=== PATIENT | male | born 1940 | race Caucasian/White ===

== ENCOUNTER 2019-07-01 19:26 | Inpatient (IN) ==
[2019-07-01 20:06] LABS: BASO# 0.02 X1000 (0.0-0.2); BASO% 0.1 % (0.0-0.8); HEMATOCRIT 38.9 % (42.0-52.0); HEMOGLOBIN 13.2 g/dL (14.0-18.0); IMM GRAN# 0.03 X1000 (0.0-0.04); IMM GRAN% 0.2 % (0.0-0.5); LYMPH% 6.5 % (20.5-51.1); MCH 32.5 PG (27-31); MCHC 33.9 g/dL (33-37); MCV 95.8 FL (81-99); MONO# 1.58 X1000 (0.11-0.59); MONO% 10.3 % (1.7-9.3); MPV 10.3 FL (7.4-10.4); NEUT# 12.72 X1000 (1.4-6.5); NEUT% 82.9 % (42.2-75.2); PLT 208 X1000 (130-400); RBC 4.06 XMIL (4.7-6.1); RDW 13.4 % (11.5-14.5); WBC 15.35 X1000 (4.8-10.8)
[2019-07-01 20:20] LABS: URINE SOURCE CLEAN CATCH
[2019-07-01] MEDS ORDERED: NS 1,000 ML IV ONE (20:33)
[2019-07-01 20:41] LABS: AGAP 16; ALB/GLOB RATIO 1.4; ALBUMIN 4.1 g/dL (3.5-5.0); ALKALINE PHOSPHATASE 91 U/L (32-122); BUN 29 mg/dL (8-22); CALCIUM 9.4 mg/dL (8.8-10.2); CHLORIDE 97 mmol/L (98-107); COSMO 282; CREATININE 1.1 mg/dL (0.7-1.2); ESTIMATED GFR > 60; GLUCOSE 133 mg/dL (70-104); GOT 23 U/L (10-34); GPT 19 U/L (10-44); LIPASE 33 U/L (13-60); POTASSIUM 3.8 mmol/L (3.5-5.1); SODIUM 137 mmol/L (136-145); TCO2 24 mmol/L (25-35); TOTAL BILIRUBIN 2.33 mg/dL (0.20-1.00)
[2019-07-01 20:44] LABS: BILIRUBIN URINE NEGATIVE (NEGATIVE); BLOOD URINE SMALL (NEGATIVE); COLOR YELLOW; GLUCOSE URINE NEGATIVE (NEGATIVE); KETONE URINE TRACE mg/dL (NEGATIVE); LEUKOCYTES URINE MODERATE (NEGATIVE); NITRITE URINE NEGATIVE (NEGATIVE); PH URINE 5.5; PROTEIN URINE 30 mg/dL (NEGATIVE); SP GRAVITY URINE 1.026; TURBIDITY URINE HAZY (CLEAR); UROBILINOGEN URINE NORMAL (NORMAL)
[2019-07-01 20:47] LABS: UR EPITHELIAL CELLS <10 /HPF (<10); URINE BACTERIA 1+ /HPF; URINE WBC 20-40 /HPF (<10)
--- NOTE | 2019-07-01 23:13 | PROVIDER DOCUMENTATION ---
HPI-General Adult - General Chief Complaint: Abdominal Pain Stated Complaint: ABD PAIN/FEVER Time Seen by Provider: 07/01/19 20:09 Source: patient Allergies/Adverse Reactions: Patient Allergies Allergy/AdvReac Type Severity Reaction Status Date / Time No Known Allergies Allergy Verified 07/01/19 23:25 Home Medications: Home Medication List Medication Instructions Recorded Confirmed Last Taken Type Aspirin 81 mg PO DAILY 07/01/19 07/01/19 Unknown History Atorvastatin Calcium 20 mg PO DAILY 07/01/19 07/01/19 Unknown History Donepezil [Aricept] 10 mg PO QPM 07/01/19 07/01/19 Unknown History Hydrochlorothiazide 12.5 mg PO DAILY 07/01/19 07/01/19 Unknown History Levothyroxine [Synthroid] 50 microgm PO DAILY 07/01/19 07/01/19 Unknown History Tamsulosin [Flomax] 0.4 mg PO QHS 07/01/19 07/01/19 Unknown History Warfarin Sodium 3 mg PO DAILY 07/01/19 07/01/19 Unknown History - History of Present Illness -Gen Adult Nature of Presenting Problems: This is a 79yo male who presents with CC of abdominal pain. The onset was 2 days ago. The location is the RLQ and the timing is intermitent. The associated symptoms are nausea and vomiting. The patient reports that he woke up on monday with nausea and vomiting and has had intermitent RLQ pain since then, and was sent from the urgent care for further evaluation. Location of Pain/Injury: reports: abdomen Pain Radiation: reports: RLQ Onset/Duration: reports: 2 days ago Timing: reports: improving, intermittent Associated Symptoms: reports: nausea, vomiting. denies: chest pain Review of Systems - Adult - REVIEW OF SYSTEMS - ADULT Constitutional: reports: fever Eyes: denies: blurred vision Ears, Nose, Mouth & Throat: reports: no symptoms reported. denies: throat pain Cardiovascular: reports: no symptoms reported. denies: chest pain Respiratory: reports: no symptoms reported, shortness of breath Past History - Adult - PAST MEDICAL HISTORY-ADULT Review of Records: reports: Old Records Reviewed Physical Exam-General - CONSTITUTIONAL General Appearance: appears well, alert - HEAD, EARS, NOSE, MOUTH & THROAT HENMT: normocephalic/atraumatic, moist mucous membranes - RESPIRATORY Respiratory: decreased breath sounds (Lower left other lung spence cleart) - CARDIOVASCULAR Cardiovascular: regular rate, rhythm, no edema, systolic murmur - GASTROINTESTINAL (ABDOMEN) Abdominal Exam: tenderness (RLQ and RUQ, mild rebound tendernss, neg rovsings) - SKIN Integumentary: normal color - NEUROLOGIC Neurologic: grossly normal - PSYCHIATRIC Psych/Mental Status: normal mood/affect, normal thought content, normal thought process Progress - PLAN OF CARE/RESULTS Progress/Plan/Lab Results: Vital Signs - 8 hr 07/01/19 19:40 Temperature 98.0 F Pulse Rate 76 Respiratory Rate 18 Blood Pressure 159/73 O2 Sat by Pulse Oximetry 95 Laboratory Results - last 24 hr 07/01/19 07/01/19 07/01/19 19:45 19:45 19:58 WBC 15.35 H RBC 4.06 L Hgb 13.2 L Hct 38.9 L MCV 95.8 MCH 32.5 H MCHC 33.9 RDW Std Deviation 13.4 Plt Count 208 MPV 10.3 Immature Gran % (Auto) 0.2 Neut % (Auto) 82.9 H Lymph % (Auto) 6.5 L Gooding % (Auto) 10.3 H Eos % (Auto) 0.0 Baso % (Auto) 0.1 Immature Gran # (Auto) 0.03 Neut # (Auto) 12.72 H Lymph # (Auto) 1.00 L Gooding # (Auto) 1.58 H Eos # (Auto) 0.00 Baso # (Auto) 0.02 Sodium 137 Potassium 3.8 Chloride 97 L Carbon Dioxide 24 L Anion Gap 16 BUN 29 H Creatinine 1.1 Estimated GFR/1.73 m2 > 60 BUN/Creatinine Ratio 26 Glucose 133 H Calculated Osmolality 282 Calcium 9.4 Total Bilirubin 2.33 H AST 23 ALT 19 Alkaline Phosphatase 91 Total Protein 7.0 Albumin 4.1 Globulin 2.9 Albumin/Globulin Ratio 1.4 Lipase 33 Urine Source CLEAN CATCH Urine Color YELLOW Urine Turbidity HAZY Urine pH 5.5 Ur Specific Harbinger 1.026 Urine Protein 30 A Ur Glucose (Stick) NEGATIVE Ur Ketones (Stick) TRACE A Urine Blood SMALL A Urine Nitrite NEGATIVE Urine Bilirubin NEGATIVE Urobilinogen Dipstick NORMAL Urine Leukocytes MODERATE A Urine WBC (Auto) 20-40 A Urine RBC (Auto) 10-20 A U Epithel Cells (Auto) <10 Urine Bacteria (Auto) 1+ Orders Category Date Time Status NPO Diet 07/01/19 19:[address] ABD/PELVIS W/IV CONT ONLY [CT] Stat Exams 07/01/19 20:32 Ordered CBC WITH DIFF [HEME] Stat Lab 07/01/19 19:45 Completed COMPREHENSIVE METABOLIC PANEL [CHEM] Stat Lab 07/01/19 19:45 Completed LIPASE [CHEM] Stat Lab 07/01/19 19:45 Completed URINALYSIS [URINALYSIS] Stat Lab 07/01/19 19:58 Completed 0.9% Sodium Chloride Inj [Ns] 1,000 ml Med 07/01/19 20:33 Discontinued IV 999 mls/hr Abd Pain/OB <20 weeks Stat Oth 07/01/19 19:44 Ordered Result Diagrams: 07/01/19 19:45 07/01/19 19:45 - REASSESSMENT Reassessment #1 Status: unchanged (Acute cholecystitis noted on CT. Discussed with general surg marya team who recomended admiting with hospitalist team and starting zosyn. Discussed with hospitalist team who has accepted the patient.) Departure - Departure Date of Disposition Decision: 07/02/19 Time of Disposition Decision: 01:14 DIAGNOSIS: Cholecystitis, acute Abdominal pain Qualifiers: Abdominal location: right lower quadrant Qualified Code(s): R10.31 - Right lower quadrant pain Disposition: ADMITTED INPATIENT 09 Certified Medical Emergency: Emergent Condition: Fair Referrals and Follow-Ups: None,PCP [Primary Care Provider] - - Critical Care Note This patient required my direct & personal management of CC.: No Attestation - Physician/ RYLAN Attestation Patient care was provided by Advanced Practice Provider:: No The physician spent face to face time with patient:: Yes Advanced Practice Provider documentation review:: Supervising physician onsite and consulted in the evaluation and care of this patient. The physician did have a face to face encounter with the patient.
[2019-07-02] MEDS ORDERED: ZOSYN 4.5 GM in NS 100 ML IV SCH ×2 (01:15→08:00)
[2019-07-02 01:39] LABS: INR 2.02; PROTIME 23.4 Seconds (11.0-16.0)
[2019-07-02] MEDS ORDERED: ZOSYN 4.5 GM in NS 100 ML IV ONE (02:00)
[2019-07-02] MEDS ORDERED: ZOFRAN IV PRN (05:11)
[2019-07-02] MEDS ORDERED: MORPHINE IV PRN (05:11)
--- NOTE | 2019-07-02 06:00 | HISTORY AND PHYSICAL ---
PRIMARY CARE PHYSICIAN: None. CHIEF COMPLAINT: Abdominal pain. HISTORY OF PRESENTING ILLNESS: A 79-year-old male with a history of hypothyroidism, hyperlipidemia, hypertension, IA, and CVA presented to the emergency department with 2 days history of having worsening right upper quadrant pain. The patient states that he was nauseated, and was having some dry heaves. The patient was evaluated in the emergency department. He had imaging done which did show acute cholecystitis. Case was discussed with General Surgery who recommended admission for further management. At the time of my examination, patient denied any headache, fever, chills, chest pain, shortness of breath, or any weight changes but complained of abdominal pain. PAST MEDICAL HISTORY: Hypothyroidism, BPH, hyperlipidemia, hypertension, coronary artery disease, IA and CVA. PAST SURGICAL HISTORY: Coronary artery bypass. ALLERGIES: No known drug allergies. CURRENT MEDICATIONS: 1. Aspirin 81 mg p.o. daily. 2. Atorvastatin 20 mg p.o. daily. 3. Aricept 10 mg p.o. every evening. 4. Hydrochlorothiazide 12.5 mg p.o. daily. 5. Levothyroxine 50 mcg p.o. daily. 6. Tamsulosin 0.4 mg p.o. at bedtime. 7. Warfarin 3 mg p.o. daily. SOCIAL HISTORY: No history of smoking, alcohol or illicit drug use. FAMILY HISTORY: No history of coronary disease. REVIEW OF SYSTEMS: Fourteen point review of systems is as in HPI. Other systems negative. PHYSICAL EXAMINATION: GENERAL: Cooperative friendly male. He is resting comfortably now. VITAL SIGNS: Temperature 97.7 degrees, pulse 72, respirations 16, and blood pressure 142/71. HEENT: Atraumatic, normocephalic. Extraocular movements intact. PERRLA. NECK: Supple. CHEST: Clear to auscultation. CARDIOVASCULAR: Regular rate and rhythm. ABDOMEN: Soft. Right upper quadrant tenderness. EXTREMITIES: No edema. NEUROLOGIC: He is awake, alert, and oriented x3. : No bladder distention. SKIN: Warm. LABORATORIES AND STUDIES: WBCs 15.35, hemoglobin 13.2, hematocrit 38.9, and platelets 208,000. Sodium 137, potassium 3.8, chloride 97, CO2 24, BUN is 29, creatinine is 1.1, glucose 133, INR is 2.02. UA shows moderate leukocytes and +1 bacteria. ASSESSMENT: A 79-year-old male with a history of hypothyroidism, CVA, IA, coronary disease, and hyperlipidemia who presented to emergency department with 2 days history of having worsening right upper quadrant pain. Patient was evaluated in the emergency department. He had a CAT scan done which was consistent with acute cholecystitis. His case was discussed with General Surgery who recommended admission for further management. 1. Acute cholecystitis. 2. Hypothyroidism. 3. Coronary artery disease. 4. Hypertension. 5. Possible UTI. PLAN: 1. We will admit patient to medical floor with telemetry. 2. Keep patient NPO. Continue with IV fluids, antiemetics, and pain control. 3. We will consult General Surgery. 4. Start patient on empiric antibiotics. 5. We will monitor blood pressure. Resume antihypertensive agent. 6. We will check urine cultures. 7. Place patient on DVT prophylaxis and SCD's. 8. We will continue to follow and reassess. Make further recommendations based on patient's clinical course. cc: Lobo Kolb MD
[2019-07-02 06:33] LABS: INR 2.27; PROTIME 25.6 Seconds (11.0-16.0)
--- NOTE | 2019-07-02 07:30 | Diag Imaging Result Doc PS360 ---
EXAM: CT ABD/PELVIS W/IV CONT ONLY 07/01/2019 HISTORY: PAIN, RLQ, FEVER, ELEVATED WBC TECHNIQUE: This exam was performed using automated exposure control, adjustment of mA or kV according to patient size, and/or use of iterative reconstruction technique. COMMENT: There are platelike opacities in both lung bases particularly the posterior right lower lobe. There is a questionable nodule present in the anterior inferior left lower lobe on image 18 measuring less than 9 mm in diameter. This is not clearly calcified. The left atrium and ventricle are enlarged. There are calcifications in the left anterior descending and right coronary arteries. There is a hiatal hernia. There are small bilateral pleural effusions. The aorta is calcified. There is no significant aneurysm. The mesenteric and renal arteries are patent. The gallbladder is markedly inflamed and thickened in appearance with several small densely calcified stones. The liver spleen adrenal glands and pancreas are unremarkable. There is some lobulation of the kidneys without evidence of hydronephrosis. There is a cyst in the upper pole of the left kidney measuring 3 cm in diameter. There is no evidence of significant adenopathy. There is no evidence of bowel obstruction. The appendix is normal in appearance. There is some fluid in the colon. Pelvis: There is no evidence of free fluid. The prostate gland is enlarged measuring 7.2 x 7 cm in the axial plane. The urinary bladder is not distended. There is an enhancing node present anterolateral to the prostate gland on the right side measuring 9 mm in diameter. There is otherwise no evidence of significant adenopathy. There is no free fluid. There are degenerative changes in the lumbar spine. There is no evidence of acute bony abnormality. IMPRESSION: 1. Bibasilar atelectasis. Cardiomegaly with coronary atherosclerosis. 2. Acute cholecystitis with cholelithiasis. 3. Prostatic enlargement. Other nonacute findings as described above. Electronically signed by Jefry Tran 07/02/2019 7:28 AM
--- NOTE | 2019-07-02 07:56 | GENERAL SURGERY CONSULTATION ---
DATE: 07/02/2019 REQUESTING PHYSICIAN: Hospitalist. REASON FOR CONSULTATION: Possible cholecystitis. HISTORY OF PRESENT ILLNESS: A 79-year-old gentleman who complained of dry heaving and nausea beginning Monday upon awakening from sleep. He has been having some diarrhea and some pain in his right lower quadrant right flank and some right upper quadrant improved. He took a shower and it has improved since he has been admitted to the hospital. He came to the ER for this pain and was evaluated. Had a CT scan that showed the possibility of cholecystitis. It was also noted that he had a large prostate, and on my view looks like his bladder looked thickened. He is currently doing okay, but I was asked to weigh an opinion. PAST MEDICAL HISTORY: 1. History of [place]. 2. History of diabetes. 3. History of hyperlipidemia. 4. History of hypertension. 5. History of thyroid disease. PAST SURGICAL HISTORY: Includes coronary artery bypass. SOCIAL HISTORY: Rare alcohol intake but nonsmoker. FAMILY HISTORY: Reviewed with patient, noncontributory to this case. HOME MEDICATIONS: 1. Aspirin. 2. Statin. 3. Aricept. 4. Hydrochlorothiazide. 5. Synthroid. 6. Warfarin. 7. Flomax. ALLERGIES: None. REVIEW OF SYSTEMS: A full 14 systems reviewed and negative as specified in HPI. PHYSICAL EXAMINATION: Vital Signs: Patient is currently afebrile. His vital signs stable. General: No acute distress. HEENT: Normocephalic, atraumatic. Pupils equal, round, reactive to light. Mucous membranes moist. Oropharynx benign. Neck: Supple, trachea midline. Cardiovascular: Regular rate and rhythm. Lungs: Grossly clear. Abdomen: Soft. No real significant tenderness on the right side in the upper quadrant. Some minimal discomfort in the mid to lower aspect of the right side. No peritoneal signs. Extremities: Moves all extremities. Neurologic: Grossly intact. Skin: No obvious signs of jaundice at this time. VASCULAR: All extremities perfused. LABORATORY: Reviewed. White blood cell count 15, hematocrit 38, platelet count 208,000. INR is 2.02. Of note his bilirubin is 2.33. His AST, ALT and alkaline phosphatase are all normal. Lipase is normal. Urinalysis shows small amount of blood, moderate leukocytosis, moderate white blood cells and urine red blood cells, but less than 10 epithelial cells with urine bacteria. CT scan independently reviewed and radiology report reviewed. ASSESSMENT AND PLAN: A 79-year-old gentleman with possible cholecystitis and possible urinary tract infection with enlarged prostate. 1. Possible cholecystitis. At this time his bilirubin is elevated, although his AST, ALT, and alkaline phosphatase are normal. He is not tender right now so at this point, agree with antibiotics and keeping him NPO. We will get an ultrasound to evaluate further. His INR is elevated, so we will hold on his Coumadin and just let it kind of trend down while we are still evaluating everything. 2. Possible urinary tract infection. At this time, his urine looks like a clean-catch. He does have blood in that. He is on Zosyn. We will continue to monitor. 3. Enlarged prostate. At this time, he does have blood in his urine. He is having possible urinary tract infection. We will get Urology to see. I appreciate the consult. cc: Ranjith Vasquez MD
[2019-07-02] MEDS: ZOSYN 3.375 GM in NS 50 ML IV SCH ×3 (08:43→21:13)
[2019-07-02] MEDS: NS 1,000 ML IV SCH (08:43)
--- NOTE | 2019-07-02 13:44 | Diag Imaging Result Doc PS360 ---
EXAM: US GB < RUQ (LIMITED) INDICATION: possible cholecystitis COMPARISON: None. FINDINGS: There are a few shadowing stones in the gallbladder lumen. There is prominent thickening of the gallbladder wall measuring up to 6 mm in thickness. This is consistent with cholecystitis. It was also seen on the previous CT dated 07/01/2019. The common bile duct is normal in diameter. Sonographic Mari's sign was reported to be negative by the litigation docket manager. The liver is grossly unremarkable. Portal venous flow is hepatopetal. The pancreas is partially obscured by bowel gas. The visualized portion is unremarkable. There is aortic atherosclerotic calcification. The aorta and IVC are grossly unremarkable, otherwise. The right kidney is grossly unremarkable. IMPRESSION: Cholelithiasis with prominent gallbladder wall thickening consistent with cholecystitis. Please correlate clinically. Electronically signed by Miki Tyson 07/02/2019 1:41 PM
--- NOTE | 2019-07-02 16:53 | EKG Report ---
Test Performed on : 07/02/2019 4:43:44 PM Test Reason : Baseline EKG for heart rhypthm Blood Pressure : / mmHG Vent. Rate : 070 BPM Atrial Rate : 117 BPM P-R Int : 000 ms QRS Dur : 102 ms QT Int : 434 ms P-R-T Axes : 000 -43 104 degrees QTc Int : 468 ms Atrial fibrillation. Left axis deviation Voltage criteria for left ventricular hypertrophy Anterior infarct (cited on or before 13-NOV-2011) ST & T wave abnormality, consider lateral ischemia Abnormal ECG When compared with ECG of 26-APR-2012 07:30, Atrial fibrillation. has replaced Sinus rhythm. Confirmed by Viktoriya KHAN, Luis Antonio Egan ([id number]) on 07/04/2019 8:04:24 PM
--- NOTE | 2019-07-02 18:31 | PROGRESS NOTE ---
DATE: 07/02/2019 INTERVAL HISTORY: No acute events overnight. He has not been having any more abdominal pain and nausea. He was walking in his room when I visited him. He states his abdominal pain has significantly gotten better. We discussed about ultrasound finding. We discussed about repeating blood test tomorrow morning. I answered all of his questions. OBJECTIVE: Vitals: Currently temperature 98.4 degrees, pulse 64, respiratory rate 18, blood pressure 140/69, he is saturating 98% room air. General: Does not appear in acute distress. Oral cavity is moist. Air entry bilaterally equal. No wheeze, rhonchi, or crackles. Cardiovascular: S1, S2 normal, appears irregular. No murmur, rub, or gallop. Abdomen is soft. There is mild tenderness in the right upper quadrant region without any guarding or rigidity. No lower extremity edema. He is alert, he is oriented x3. He does appear to have some memory lapses, though. DIAGNOSTIC STUDIES: Labs suggestive of leukocytosis, elevated total bilirubin. He does have on EKG irregularly irregular heart rhythm and left ventricle hypertrophy. ASSESSMENT AND PLAN: 1. Acute cholecystitis with cholecystolithiasis based on CT scan, ultrasound finding. Continue intravenous fluids, intravenous antibiotic. Follow up final surgery recommendations. 2. History of coronary artery disease status post coronary artery bypass grafting in 2011 and history of cerebrovascular accident and likely history of chronic atrial fibrillation, currently rate controlled. I will continue to hold his Coumadin for now as we await final surgery recommendation. 3. Others. Continue tamsulosin for BPH, Urology has been consulted for his hematuria on urinalysis, though he was on Coumadin; continue levothyroxine for hypothyroidism; donepezil which I assume he is taking for memory impairment, and atorvastatin DISPOSITION: Awaiting blood work tomorrow to see the trend of bilirubin and further surgical recommendation. Plan of care discussed with the patient. His questions have been answered. cc: Wei Nicole MD
--- NOTE | 2019-07-02 20:07 | CONSULTATION ---
DATE OF CONSULTATION: 07/02/2019 ATTENDING AND REFERRING PHYSICIAN: Hospitalist. HISTORY OF PRESENT ILLNESS: This 79-year-old male was admitted with right upper quadrant pain and nausea and vomiting. He was noted to have a large prostate on CT scan. The patient has a long history of enlarged prostate and obstructive voiding. He has a history of urinary retention and uses self-catheterization and occasionally. He states the last time was several years ago. He states he does not go anywhere without his catheter. He is on Flomax 0.4 mg every evening. He denies any other urologic surgery. He has no history of kidney stones. He has an occasional urinary tract infection. PAST MEDICAL HISTORY: 1. Coronary artery disease. 2. Diabetes. 3. Elevated cholesterol. 4. Hypertension. 5. Memory problems. CURRENT MEDICATIONS: Documented on the chart. PAST SURGICAL HISTORY: Coronary artery bypass grafting. SOCIAL HISTORY: Occasional alcohol use. He denies tobacco use. REVIEW OF SYSTEMS: No known drug allergies. He states usually he is in good health. He states he does have some memory problems. He denies any recent chest pains. He states he has occasional bowel problems with a change in shape of his stool. PHYSICAL EXAMINATION: General: A normally developed, well nourished, age apparent, white male who is cooperative. HEENT: Normal for age. Lungs: Clear. Cardiovascular: Regular rate and rhythm. Abdomen: Mildly protuberant, soft. No hepatosplenomegaly or masses. Normal bowel sounds. Mild right-sided abdominal tenderness. No guarding or rebound. : Uncircumcised male. Both testes are down. Scrotal exam is normal. Small left spermatocele. No inguinal hernias. Rectal: Normal sphincter tone. Prostate 80 to 90 g, smooth and symmetric. Extremities: No clubbing, cyanosis, or edema. Neurologic: No focal deficits. LABORATORY EVALUATION: White count of 15.35, hemoglobin of 13.2, hematocrit of 38.9, and platelets are 208,000. Serum electrolytes are normal. BUN 29 and creatinine 1.1. His PSA in April 2013 was 7.4. IMPRESSION: 1. Enlarged prostate with obstructive voiding. 2. Remote history of urinary retention. 3. History of elevated prostate specific antigen. RECOMMEND: 1. Check postvoid residual. 2. Check prostate specific antigen. 3. Increase Flomax to 0.4 mg b.i.d. Thank you for this consultation. cc: Alli Saravia MD
[2019-07-02] MEDS ORDERED: FLOMAX PO SCH (21:00)
[2019-07-02] MEDS: ARICEPT PO SCH (21:14)
[2019-07-02] MEDS: FLOMAX PO SCH (21:14)
[2019-07-02] MEDS ORDERED: BLISTEX MEDICATED BERRY LIP BALM TOP ONE (23:34)
[2019-07-03] MEDS: NS 1,000 ML IV SCH ×2 (01:19→02:47)
[2019-07-03] MEDS: ZOSYN 3.375 GM in NS 50 ML IV SCH ×4 (02:47→21:24)
--- NOTE | 2019-07-03 06:08 | GENERAL SURGERY PROGRESS NOTE ---
DATE: 07/03/2019 SUBJECTIVE: Patient says he is not hurting right now. OBJECTIVE: Vital Signs: Patient is currently afebrile. His vital signs are stable. General: No acute distress. HEENT: Normocephalic, atraumatic. Pupils equal, round, reactive to light. Mucous membranes moist. Oropharynx benign. Neck: Supple. Trachea midline. Cardiovascular: Regular rate and rhythm. Lungs: Grossly clear. Abdomen: Soft, nondistended, nontender at this time. Extremities: Moves all extremities. Neurologic: Grossly intact. Skin: No signs of jaundice. Vascular: All extremities perfused. LABORATORY: Reviewed from yesterday. INR is 2.27. Ultrasound reviewed and does show the possibility of a prominent gallbladder with wall thickening. ASSESSMENT AND PLAN: A 79-year-old gentleman with possible cholecystitis. 1. Cholecystitis. At this time, discussed with patient options. He wants to proceed with nonoperative management with antibiotics. Discussed with him the natural course of this, that he could improve but he has a high chance of recurrence of symptoms. He says he understands but still wants to try to avoid surgery, since he is not hurting right now. He also says he wants to go home. Given this, the fact that he understands the risk of it, we could potentially put him on oral antibiotics and send him home, although I would need to see him back in the office in a week to evaluate fully. The soonest we could probably do the surgery is probably tomorrow anyway, because we have to reverse his anticoagulation, but again, the patient seems pretty set on the fact that he wants to go home and not have surgery. 2. Possible urinary tract infection. At this time, microbiology is pending. 3. Enlarged prostate. At this time, Urology has seen him. I appreciate their input. cc: Ranjith Vasquez MD
[2019-07-03 07:14] LABS: BASO# 0.02 X1000 (0.0-0.2); BASO% 0.2 % (0.0-0.8); EOS# 0.04 X1000 (0.0-0.7); EOS% 0.4 % (0.0-10.0); HEMATOCRIT 35.8 % (42.0-52.0); IMM GRAN# 0.02 X1000 (0.0-0.04); IMM GRAN% 0.2 % (0.0-0.5); LYMPH# 0.88 X1000 (1.2-3.4); LYMPH% 7.8 % (20.5-51.1); MCH 32.7 PG (27-31); MCHC 33.5 g/dL (33-37); MCV 97.5 FL (81-99); MONO# 1.23 X1000 (0.11-0.59); MONO% 10.9 % (1.7-9.3); MPV 10.4 FL (7.4-10.4); NEUT# 9.12 X1000 (1.4-6.5); NEUT% 80.5 % (42.2-75.2); PLT 213 X1000 (130-400); RBC 3.67 XMIL (4.7-6.1); RDW 13.6 % (11.5-14.5); WBC 11.31 X1000 (4.8-10.8)
[2019-07-03 07:20] LABS: INR 2.67; PROTIME 29.1 Seconds (11.0-16.0)
[2019-07-03 07:43] LABS: AGAP 11; ALB/GLOB RATIO 0.9; ALBUMIN 3.2 g/dL (3.5-5.0); ALKALINE PHOSPHATASE 95 U/L (32-122); BUN 22 mg/dL (8-22); CALCIUM 8.9 mg/dL (8.8-10.2); CHLORIDE 102 mmol/L (98-107); COSMO 279; ESTIMATED GFR > 60; GLUCOSE 97 mg/dL (70-104); GOT 21 U/L (10-34); GPT 15 U/L (10-44); POTASSIUM 3.5 mmol/L (3.5-5.1); SODIUM 138 mmol/L (136-145); TCO2 25 mmol/L (25-35); TOTAL PROTEIN 6.9 g/dL (6.3-8.3)
[2019-07-03] MEDS: FLOMAX PO SCH ×2 (09:29→21:24)
[2019-07-03] MEDS: SYNTHROID PO SCH (09:30)
[2019-07-03] MEDS: LIPITOR PO SCH (09:31)
[2019-07-03] MEDS: ASPIRIN PO SCH (09:31)
--- NOTE | 2019-07-03 12:10 | PROGRESS NOTE ---
DATE: 07/03/2019 INTERVAL HISTORY: The patient today, did not want to go for surgery. Surgical team had evaluated the patient, and he wanted to stay back for intravenous antibiotic, knowing that his white blood cell count and bilirubin were trending down. He understood the risk associated with it. He also understood the risk associated with worsening acute cholecystitis. SUBJECTIVE: He is feeling better. He is denying any nausea or vomiting, except only mild tenderness in the right upper quadrant, which has improved to 99%, in his words. He has started drinking some liquids. OBJECTIVE: Vital Signs: Currently, temperature 98.2 degrees, pulse 69, respiratory rate 18, blood pressure 113/72, saturating 98% on room air. General: Does not appear to be in any acute distress. HEENT: Oral cavity is moist. Lungs: Air entry bilaterally equal. No wheeze, rhonchi, or crackles. Cardiovascular: S1, S2 normal. Irregularly irregular. No murmur, rub, or gallop. Abdomen: Soft. Mild tenderness in the right upper quadrant, without guarding, rigidity, or rebound. Active bowel sounds. Extremities: No lower extremity edema. Neurologic: He is alert and oriented x3. IMAGING AND LABORATORY DATA: Labs suggestive of improving leukocytosis. Normal hemoglobin, normal platelet count. INR of 2.6. Normal electrolytes. His bilirubin is 1.5 today. His direct bilirubin is 0.4. His prostate-specific antigen is significantly elevated. No new imaging today. ASSESSMENT AND PLAN: 1. Acute cholecystitis with cholecystolithiasis and symptoms of right upper quadrant abdominal pain with nausea and dry heaves. He likely has symptomatic acute cholecystitis. However, he is adamant about not undergoing surgery, so I will continue him on intravenous antibiotics, and follow up with blood count and liver function tests tomorrow. I will also continue him on a liquid diet to see how he does on that. If his lab work shows improvement and he is not symptomatic, then he wanted to be discharged home on oral antibiotics tomorrow. 2. History of coronary artery disease, status post coronary artery bypass graft in 2011, and history of cerebrovascular accident, with history of chronic atrial fibrillation, which is currently rate controlled. I am holding his Coumadin as I await final discharge disposition. Meanwhile, I will continue his aspirin and atorvastatin. 3. History of benign prostatic hypertrophy with significantly elevated PSA. Continue tamsulosin at a higher dose, and outpatient Urology followup. 4. Others. Continue levothyroxine for hypothyroidism, donepezil for memory impairment. 5. Disposition. Awaiting repeat lab work tomorrow. If it shows improvement, then the plan could be to let him go home on oral antibiotics. He understood the possible risks associated with it. If he develops recurrence of symptoms or the lab tests worsen, then he may consider surgical option. I tried to reach out to the dish person listed in the computer and left a voice message. cc: Wei Nicole MD MTDD
[2019-07-03] MEDS: ARICEPT PO SCH (21:24)
[2019-07-04] MEDS: ZOSYN 3.375 GM in NS 50 ML IV SCH ×2 (01:13→08:30)
--- NOTE | 2019-07-04 06:36 | GENERAL SURGERY PROGRESS NOTE ---
DATE: 07/04/2019 SUBJECTIVE: Patient doing well. No major issues. OBJECTIVE: Vital Signs: Patient is currently afebrile. His vital signs are stable. General: No acute distress. HEENT: Normocephalic, atraumatic. Pupils equal, round, and reactive to light. Mucous membranes moist. Oropharynx benign. Neck: Supple. Trachea midline. Cardiovascular: Regular rate and rhythm. Lungs: Grossly clear. Abdomen: Soft. Nontender at this point. Extremities: Moves all extremities. Neurologic: Grossly intact. Skin: No signs of jaundice. Vascular: All extremities perfused. LABORATORY: None this morning as of yet. ASSESSMENT AND PLAN: A 79-year-old gentleman with acute cholecystitis. Acute cholecystitis. At this time, patient still wants to pursue the antibiotic route. I did discuss with him yesterday and documented in the chart the natural course of cholecystitis. The fact that treatment with antibiotics alone, he may have recurrence. He is aware of this, but still wants to proceed down this route from a surgical point of view. Once okay with hospitalist, he can be discharged. cc: Ranjith Vasquez MD
[2019-07-04 07:29] LABS: BASO# 0.03 X1000 (0.0-0.2); BASO% 0.4 % (0.0-0.8); EOS% 2.7 % (0.0-10.0); HEMATOCRIT 34.9 % (42.0-52.0); HEMOGLOBIN 11.6 g/dL (14.0-18.0); IMM GRAN# 0.02 X1000 (0.0-0.04); IMM GRAN% 0.3 % (0.0-0.5); LYMPH# 1.23 X1000 (1.2-3.4); LYMPH% 16.6 % (20.5-51.1); MCH 32.4 PG (27-31); MCHC 33.2 g/dL (33-37); MCV 97.5 FL (81-99); MONO# 0.74 X1000 (0.11-0.59); MPV 10.1 FL (7.4-10.4); PLT 228 X1000 (130-400); RBC 3.58 XMIL (4.7-6.1); RDW 13.4 % (11.5-14.5); WBC 7.42 X1000 (4.8-10.8)
[2019-07-04 07:41] LABS: INR 3.12
[2019-07-04 08:01] LABS: AGAP 11; ALB/GLOB RATIO 0.9; ALKALINE PHOSPHATASE 84 U/L (32-122); BUN 17 mg/dL (8-22); CALCIUM 8.6 mg/dL (8.8-10.2); CHLORIDE 103 mmol/L (98-107); COSMO 279; ESTIMATED GFR > 60; GLUCOSE 88 mg/dL (70-104); GOT 24 U/L (10-34); GPT 16 U/L (10-44); MAGNESIUM 2.1 mg/dL (1.5-2.7); SODIUM 139 mmol/L (136-145); TCO2 25 mmol/L (25-35); TOTAL BILIRUBIN 0.95 mg/dL (0.20-1.00); TOTAL PROTEIN 6.4 g/dL (6.3-8.3)
[2019-07-04] MEDS ORDERED: KLOR-CON PO ONE (08:04)
[2019-07-04] MEDS: ASPIRIN PO SCH (08:30)
[2019-07-04] MEDS: LIPITOR PO SCH (08:30)
[2019-07-04] MEDS: FLOMAX PO SCH (08:30)
[2019-07-04] MEDS: SYNTHROID PO SCH (08:30)
[2019-07-04 09:28] VITALS: BP 122/66
--- NOTE | 2019-07-04 15:05 | DISCHARGE SUMMARY ---
ADMISSION DATE: 07/02/2019 DISCHARGE DATE: 07/04/2019 DISCHARGE DISPOSITION: Home. DISCHARGE CONDITION: Hemodynamically stable. He is eating food without any nausea, vomiting, or abdominal pain. His liver function and blood counts have become normal. He refused to undergo surgery. DISCHARGE DIAGNOSES: 1. Acute calculous cholecystitis. 2. Cholecystolithiasis. 3. Symptoms of acute cholecystitis with nausea and dry heaves. 4. Significant prostatic hypertrophy with elevated PSA. 5. History of cerebrovascular accident in the past. 6. History of coronary artery disease status post CABG in 2011. 7. History of hypothyroidism. 8. Hyperlipidemia. 9. Essential hypertension. 10. History of chronic atrial fibrillation, rate controlled. DISCHARGE MEDICATIONS: 1. Comprehensive metabolic panel to be done within 5 days. 2. Donepezil 10 mg at nighttime. 3. Aspirin 81 mg daily. 4. Atorvastatin 20 mg daily. 5. Hydrochlorothiazide 12.5 mg daily. 6. Levothyroxine 50 mcg daily. 7. Warfarin 3 mg daily. 8. Metronidazole 500 mg t.i.d. 15 tablets. 9. Tamsulosin 0.4 mg b.i.d., the dose was increased from once a day considering his large prostate. 10. Levofloxacin 500 mg daily, 5 tablets. CONSULTATIONS DURING HOSPITALIZATION: Dr. Vasquez, General Surgeon. Dr. Saravia, Urologist. VITALS: At the time of discharge, temperature 98 degrees, pulse 65, respiratory 18, blood pressure 122/60, saturating 95% on room air. PHYSICAL EXAMINATION: General: He does not appear in acute distress. Oral cavity is moist. Air entry bilaterally equal. No wheeze, rhonchi, or crackles. Cardiovascular: S1, S2 normal. Irregularly irregular rhythm. Rate in 70s. No murmur, rub, or gallop. Abdomen: Soft, nontender. Active bowel sounds. He is eating his meal right now. Extremity: No lower extremity edema. He is alert and oriented x3. SIGNIFICANT LABS: During hospital admission discharge: [place]BC [place] 76842 at admission which improved to 7000. His hemoglobin is 11.6. His potassium was 3 at the time of discharge and he is getting 40 of p.o. potassium. His BUN is 17, creatinine is 1. His total bilirubin was 2.3 on admission which improved to 0.95. His PSA was 20. Microbiology urine culture did not have any growth. IMAGING: Abdomen pelvis CT had bibasilar atelectasis, cardiomegaly with coronary atherosclerosis, acute cholecystitis with cholelithiasis and significant prostatic enlargement. Abdomen ultrasound has cholelithiasis with prominent gallbladder wall thickening consistent with cholecystitis. HOSPITAL COURSE SUMMARY: Mr. Parmar is a 79-year-old man with history of coronary artery disease and CABG as well as chronic atrial fibrillation, who presented on 07/01/2019 with chief complaints of abdominal pain. Apparently, the patient had 2 days of right upper quadrant pain, nausea, dry heaves associated with it. In the ER, he was found to have leukocytosis, elevated total bilirubin and CT scan as well as gallbladder evidence of cholecystitis. Surgical team was consulted and patient was recommended to undergo cholecystectomy considering he had symptomatic cholecystolithiasis and gallbladder inflammation. However, the patient did not want to go for surgery. He was treated with IV antibiotics and IV fluids. With IV antibiotics, the patient's symptoms improved. His WBC count became normal. His bilirubin also became normal. Despite understanding the risk of recurrence of acute cholecystitis, he refused to undergo surgery and wanted to be treated with antibiotics only. At the time of discharge, he is tolerating diet well. He will be discharged on oral antibiotics. His BPH medication tamsulosin dose was increased. All of his questions were answered. TIME SPENT: More than 30 minutes were spent in discharging this patient. cc: Wei Nicole MD
== END 2019-07-04 12:01 | disposition home or self-care (01) | DRG 446 ==
LOC: ED 19:26 → 4N 07-02 04:30 → SUATTDRO 07-02 04:30 → 4N 07-02 05:10
PROVIDERS: ATTEND Internal Medicine